=== PATIENT | female | born 1935 | race Caucasian/White ===

== ENCOUNTER 2019-04-05 11:23 | Outpatient (CLI) | payer MEDICARE, BC ==
--- NOTE | 2019-04-05 14:47 | XRAY Report ---
Reason: LEG WEAKNESS,LEFT,SCIATICA,ACUTE Procedure Date: 04/05/2019 Accession Number: [id number] / [id number] Procedure: XR - Lumbar Spine Complete CPT Code: FULL RESULT: EXAM: LUMBOSACRAL SPINE RADIOGRAPHY EXAM DATE: 04/05/2019 11:54 AM. CLINICAL HISTORY: Leg weakness, left, sciatica, acute. COMPARISONS: None. TECHNIQUE: 3 views. FINDINGS: Alignment: Normal. No spondylolisthesis or scoliosis. Bones: Five xqm-edq-[id number] lumbar vertebral bodies are present. No fractures or bone lesions. Disks: There is multilevel loss of disk space height throughout the lumbar spine with endplate sclerosis, most pronounced at L2-L3 and L4-L5. Facets: There is mild facet arthropathy at L1 through L3 with moderate facet arthropathy at L4 and moderate to severe facet arthropathy at L5 where there is suggestion of a pars defect, not well seen due to the degenerative changes. Sacroiliac Joints: Unremarkable. Soft Tissues: Normal. The visualized bowel gas pattern is normal. IMPRESSION: Extensive lumbar spine degenerative changes. Given suspected pars defect and symptoms, consideration for noncontrast MRI of the lumbar spine is suggested. RADIA
== END 2019-04-05 11:24 | disposition home or self-care (01) ==
LOC: DI 11:23
PROVIDERS: ATTEND Physician Assistant Medical
DX: M51.36 Other intervertebral disc degeneration, lumbar region (principal); M47.816 Spondylosis without myelopathy or radiculopathy, lumbar region
CPT/HCPCS: 72110

== ENCOUNTER 2019-04-14 06:59 | Outpatient (CLI) | payer MEDICARE, BC ==
--- NOTE | 2019-04-14 19:07 | MRI Report ---
Reason: SPONDYLOSIS W/O MYELOPATHY OR RADICULOPATHY, LUMBA Procedure Date: 04/14/2019 Accession Number: [id number] / [id number] Procedure: MRI - Lumbar Spine W/O CPT Code: FULL RESULT: EXAM: MRI LUMBAR SPINE WITHOUT CONTRAST EXAM DATE: 04/14/2019 07:50 AM. CLINICAL HISTORY: Spondylosis with myelopathy or radiculopathy, lumbar. COMPARISON: LUMBAR SPINE COMPLETE 04/05/2019 11:29 AM. TECHNIQUE: Multiplanar, multisequence T1-weighted and fluid-sensitive sequences of the lumbar spine from T12 to S1 without contrast. Other: None. FINDINGS: Spinal Canal: The conus terminates at L2. The conus medullaris and cauda equina are unremarkable. Alignment: No scoliosis or spondylolisthesis. Bone Marrow: Five kxx-tfv-szcwrpa lumbar vertebral bodies are assumed. Modic type II degenerative marrow signal L1 to L5. T12 vertebral body 2.5 cm non-expansile hemangioma. Disk Levels/Facets: T11-T12: Severe disk degeneration. Posterior 2 mm disk protrusion. Moderate right foraminal stenosis from foraminal 2 mm disk protrusion and facet degenerative hypertrophy. Mild left foraminal stenosis. Mild central spinal canal stenosis. T12-L1: Unremarkable. L1-L2: Severe disk degeneration. Moderate bilateral foraminal stenosis from disk degeneration and foraminal disk protrusion. Posterior 3 mm disk protrusion. Mild central spinal canal stenosis. L2-L3: Severe disk degeneration. Diffuse disk bulge. Mild left foraminal stenosis. Moderate right foraminal stenosis from facet hypertrophy and disk bulge. Mild central spinal canal stenosis. L3-L4: Severe disk degeneration. Moderately severe spinal canal stenosis. Ligamentum flavum thickening. Severe right and moderate left facet hypertrophic arthropathy. Moderate right foraminal stenosis from facet hypertrophy. Mild left foraminal stenosis from facet hypertrophy. L4-L5: Severe disk degeneration. Mild spinal canal stenosis. Moderate facet joint arthrosis. Posterior element hypertrophy. Mild bilateral foraminal stenosis. L5-S1: Severe disk degeneration. Moderate facet joint arthrosis. Moderate right and moderate to severe left foraminal stenosis from disk degeneration and endplate spurring. Musculature: Normal. No edema or fatty atrophy. Other: The partially visualized retroperitoneum is unremarkable. IMPRESSION: 1. Moderately severe spinal canal stenosis, moderate right foraminal stenosis and mild left foraminal stenosis L3-L4. 2. Moderate right and moderate to severe left foraminal stenosis L5-S1. 3. Mild central spinal canal stenosis and moderate right foraminal stenosis L2-L3. 4. Mild central spinal canal stenosis and moderate bilateral foraminal stenosis L1-L2. 5. Mild central spinal canal stenosis, moderate right foraminal stenosis and mild left foraminal stenosis T11-T12. Comment: The following findings are so common in adults without low back pain that while we report their presence, they must be interpreted with caution and in the context of the clinical situation. (Reference Damienk et al, Spine 2001) Prevalence of findings in patients without low back pain: Disk degeneration (any evidence): 92% Disk desiccation/T2 signal loss: 83% Disk height loss: 56% Disk bulge: 64% Disk protrusion: 32% Annular tear/high intensity zone: 38% RADIA
== END 2019-04-14 07:00 | disposition home or self-care (01) ==
LOC: DI 06:59
PROVIDERS: ATTEND Physician Assistant Medical
DX: M51.26 Other intervertebral disc displacement, lumbar region (principal); M51.24 Other intervertebral disc displacement, thoracic region; M48.061 Spinal stenosis, lumbar region without neurogenic claudication; M47.816 Spondylosis without myelopathy or radiculopathy, lumbar region; M51.37 Other intervertebral disc degeneration, lumbosacral region; M48.07 Spinal stenosis, lumbosacral region; M51.36 Other intervertebral disc degeneration, lumbar region; M47.817 Spondylosis without myelopathy or radiculopathy, lumbosacral region
CPT/HCPCS: 72148

== ENCOUNTER 2019-06-08 15:54 | Outpatient (CLI) | payer MEDICARE, BC ==
[2019-06-08] MEDS ORDERED: GADOBUTROL 7.5 MMOL/7.5 ML VIAL ONE (17:19)
[2019-06-08] MEDS ORDERED: GADOBUTROL 7.5 MMOL/7.5 ML VIAL IV ONE (17:20)
--- NOTE | 2019-06-09 14:42 | MRI Report ---
Reason: DEGENERATIVE JOINT DISEASE, LUMBOSACRAL SPINE, SEV Procedure Date: 06/08/2019 Accession Number: [id number] / [id number] Procedure: MRI - Hip LT W/WO CPT Code: FULL RESULT: EXAM: LEFT HIP MRI WITHOUT AND WITH CONTRAST EXAM DATE: 06/08/2019 05:34 PM. CLINICAL HISTORY: Degenerative joint disease, lumbosacral spine, severe. Left hip and left leg pain. COMPARISON: XR HIP LEFT 06/02/2019 10:13 AM. TECHNIQUE: Multiplanar, multisequence T1-weighted and fluid-sensitive, small arygp-fb-ftnj sequences of the hip and large rxnwg-bq-qyng sequences of the pelvis before and after administration of intravenous contrast. IV contrast: 7 cc Gadavist. Other: None. FINDINGS: Bones: Left femoral head and left femoral neck marrow edema. 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 Anterior superior left acetabulum subcortical degenerative cysts. Left Hip: No acetabular retroversion. Femoral head/neck offset is within normal limits. Moderate left hip joint fluid. Severe chondromalacia. Complete loss of the superior left hip joint space. The labrum is intact. The ligamentum teres is intact. Enhancing edema superior left femoral head with nonenhancing 1.0 x 1.8 cm superior left femoral head defect (image 88 series 1101). Cortical irregularity and subcortical anterior left femoral head enhancement 1.8 cm (image 80 series 1101). Other Joints: Sacroiliac joints are within normal limits. Unremarkable right hip. Severe disk degeneration L4-L5 and L5-S1 interspaces. Musculature: No edema or fatty atrophy. The gluteus medius and minimus tendons are normal. The visualized hamstring tendons are normal. The ischiofemoral space is normal. Pelvic Cavity: The visualized viscera are unremarkable. No lymphadenopathy. No free fluid in the pelvis. Other: The visualized sciatic nerves are unremarkable. No bursitis. The subcutaneous tissues are unremarkable. No abscess or cellulitis. IMPRESSION: 1. Moderate left hip joint fluid and enhancing synovium. Recommend fluid aspiration if there is clinical concern for septic joint or inflammatory arthritis. 2. 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 Left femoral head marrow edema. Cannot exclude femoral head osteomyelitis and left hip septic joint. RADIA
== END 2019-06-08 15:55 | disposition home or self-care (01) ==
LOC: DI 15:54
PROVIDERS: ATTEND Internal Medicine
DX: M16.12 Unilateral primary osteoarthritis, left hip (principal)
CPT/HCPCS: 73723; A9585

== ENCOUNTER 2019-09-02 07:57 | Inpatient (IN) | payer MEDICARE, BC ==
[2019-09-02] MEDS ORDERED: SODIUM CHLORIDE 0.9% 1,000 ML IV ONE (08:36)
--- NOTE | 2019-09-02 08:39 | ED Physician Documentation ---
PD HPI NVD - Stated complaint Stated Complaint: N/V WEAKNESS/POST OP COMPLICATIONS - Chief complaint Chief Complaint: Abd Pain - History obtained from History obtained from: Patient, Family - History of Present Illness Timing - onset: How many days ago (4) Timing - duration: Days (4) Timing - details: Gradual onset, Still present Associated symptoms: Loss of appetite Contributing factors: Other (recent hip surgery) Worsened by: Eating Similar symptoms before: No diagnosis Recently seen: Surgery - Additonal information Additional information: 83-year-old female has had a minimally invasive left hip replacement done 8 days ago. She had some transient nausea in the recovery room and she went home was well for several days and beginning 3 days ago she began to get nausea again and this is progressed she is developed some weakness and she had a syncopal episode this morning in route to the bathroom. Review of Systems Constitutional: reports: Fatigue. denies: Fever, Chills Eyes: denies: Decreased vision Ears: denies: Ear pain Nose: denies: Rhinorrhea / runny nose, Congestion Throat: denies: Sore throat Cardiac: denies: Chest pain / pressure, Palpitations Respiratory: denies: Dyspnea, Cough GI: reports: Nausea, Vomiting. denies: Abdominal Pain : denies: Dysuria, Frequency Skin: denies: Rash Musculoskeletal: reports: Extremity pain. denies: Neck pain, Back pain Neurologic: reports: Generalized weakness. 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 - Present Medications Home Medications: Ambulatory Orders Medication Instructions Recorded Confirmed Acetaminophen [Tylenol Extra 500 mg PO 09/02/19 Strength] Aspirin 81 mg PO DAILY 09/02/19 09/02/19 Atenolol 25 mg PO BID 09/02/19 09/02/19 Calcium Carbonate/Vitamin D3 1 each PO DAILY 09/02/19 09/02/19 [Caltrate 600 Plus D3 Tablet] Meloxicam 15 mg PO DAILY 09/02/19 09/02/19 Multivitamin/Iron/Folic Acid 1 each PO DAILY 09/02/19 09/02/19 [Centrum Adults Tablet] Ondansetron HCl [Zofran] 4 mg PO 09/02/19 Polyethylene Glycol 1450 10,000 gm MC 09/02/19 Red Yeast Rice 600 mg PO DAILY 09/02/19 09/02/19 Senna [Senokot] 8.6 mg PO DAILY 09/02/19 09/02/19 Sennosides/Docusate Sodium [Colace 1 each PO 09/02/19 2-in-1 Tablet] amLODIPine [Norvasc] 5 mg PO DAILY 09/02/19 09/02/19 - Allergies Allergies/Adverse Reactions: Allergies Allergy/AdvReac Type Severity Reaction Status Date / Time diphenhydramine AdvReac Nausea Verified 09/02/19 08:11 - Social History Does the pt smoke?: No Smoking Status: Never smoker Does the pt drink ETOH?: No Does the pt have substance abuse?: No PD ED PE NORMAL - Vitals Vital signs reviewed: Yes (wide pulse pressure) - General General: Alert and oriented X 3, Well developed/nourished, Other (affect of concern) - HEENT HEENT: Atraumatic, PERRL, EOMI - Neck Neck: Supple, no meningeal sign - Cardiac Cardiac: RRR, No murmur - Respiratory Respiratory: No respiratory distress, Clear bilaterally - Abdomen Abdomen: Normal bowel sounds, Soft, Non distended, No organomegaly, Other (mild epigastric tenderness) - Back Back: No CVA TTP, No spinal TTP - Derm Derm: Normal color, Warm and dry, No rash - Extremities Extremities: No deformity, No edema - Neuro Neuro: Alert and oriented X 3, 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, No motor deficit, No sensory deficit, Normal speech Eye Opening: Spontaneous Motor: Obeys Commands Verbal: Oriented GCS Score: 15 - Psych Psych: Normal mood, Normal affect Results - Vitals Vitals: Vital Signs - 24 hr 09/02/19 09/02/19 09/02/19 08:09 10:14 11:10 Temperature 36.9 C 37.2 C Heart Rate 84 86 85 Respiratory 18 17 16 Rate Blood Pressure 108/37 L 102/45 L 97/38 L O2 Saturation 95 97 09/02/19 09/02/19 11:20 11:30 Temperature 37.2 C 37.4 C Heart Rate 84 81 Respiratory 14 13 Rate Blood Pressure 103/44 L 102/47 L O2 Saturation Oxygen O2 Source Room air - Labs Labs: Laboratory Tests 09/02/19 09/02/19 09/02/19 08:36 08:50 08:50 WBC 18.1 H RBC 1.54 L Hgb 4.9 L* Hct 15.7 L* MCV 101.9 H MCH 31.8 H MCHC 31.2 L RDW 13.9 Plt Count 337 MPV 9.0 Neut # (Auto) 13.7 H Lymph # (Auto) 1.8 [place] # (Auto) 1.3 H Eos # (Auto) 0.1 Baso # (Auto) 0.1 Absolute Nucleated RBC 0.06 Nucleated RBC % 0.3 Sodium 135 Potassium 4.5 Chloride 99 L Carbon Dioxide 29 Anion Gap 7.0 BUN 51 H Creatinine 1.1 H Estimated GFR (MDRD) 47 L Glucose 131 H Lactic Acid 1.3 Calcium 9.0 Total Bilirubin 0.6 AST 29 ALT 21 Alkaline Phosphatase 29 L Total Protein 5.0 L Albumin 2.5 L Globulin 2.5 Albumin/Globulin Ratio 1.0 Lipase 62 H Blood Type Blood Type Recheck Antibody Screen Crossmatch IS Only 09/02/19 09/02/19 09:24 10:35 WBC RBC Hgb Hct MCV MCH MCHC RDW Plt Count MPV Neut # (Auto) Lymph # (Auto) [place] # (Auto) Eos # (Auto) Baso # (Auto) Absolute Nucleated RBC Nucleated RBC % Sodium Potassium Chloride Carbon Dioxide Anion Gap BUN Creatinine Estimated GFR (MDRD) Glucose Lactic Acid Calcium Total Bilirubin AST ALT Alkaline Phosphatase Total Protein Albumin Globulin Albumin/Globulin Ratio Lipase Blood Type A POSITIVE Blood Type Recheck A POSITIVE Antibody Screen NEGATIVE Crossmatch IS Only See Detail - Rads (name of study) hip CT Radiology: Prelim report reviewed (In: 1. No hematoma postoperative left hip subcutaneous seroma. Left hip arthroplasty with greater trochanter fragment not included in the lateral plating), EMP read indepedently, See rad report chest Radiology: Prelim report reviewed (Impression: 1. Findings suggestive of mild CHF/fluid overload. Elevation of the right hemidiaphragm with mild right basila r atelectasis. Nodular opacity overlying the right upper lung may represent pulmonary nodule or sclerotic osseous density. If there are no prior studies available for comparison CT chest is recommended for further evaluation.), EMP read indepedently, See rad report Procedures - IVC sono (time) 0830 Bedside IVC sono: IVC measures (cm) (0.87), Dehydration (est 2 liter deficit) PD MEDICAL DECISION MAKING - ED course Complexity details: reviewed results, re-evaluated patient, considered differential, d/w patient, d/w family ED course: 83-year-old female with a recent minimally invasive left hip surgery presents today with marked anemia and GI bleeding. Her history is consistent with the GI bleeding being the source of her reduced blood counts. She indicates that on initial return to home she was progressing been able to get out of bed and back and forth to the bathroom and this changed 2 days ago. She noted at that time dark tarry stool as well. Her stool today is guaiac positive and black. She is administered intravenous Protonix a second IV line is placed and blood is ordered. Hospitalist is consulted in the case for admission. We do not have ortho here and her left hip is evaluated for bleeding by CT scan to ensure the patient is appropriate for our facility. No hematoma on CT. Departure - Departure Disposition: [facility] DC/Xfer Clinical Impression: GI bleeding Qualifiers: GI bleed type/associated pathology: melena Qualified Code(s): K92.1 - Melena Anemia Qualifiers: Anemia type: other cause Other causes of anemia: acute posthemorrhagic Qualified Code(s): D62 - Acute posthemorrhagic anemia
[2019-09-02 09:01] LABS: BASOPHILS # (AUTO) 0.1 10^3/uL (0.0-0.1); BASOPHILS % (AUTO) 0.4 %; EOSINOPHILS # (AUTO) 0.1 10^3/uL (0.0-0.7); EOSINOPHILS % (AUTO) 0.8 %; LYMPHOCYTES # (AUTO) 1.8 10^3/uL (1.5-3.5); LYMPHOCYTES % (AUTO) 10.1 %; MEAN CORPUSCULAR HEMOGLOBIN 31.8 pg (27.0-31.0); MEAN CORPUSCULAR HGB CONC 31.2 g/dL (32.0-36.0); MEAN CORPUSCULAR VOLUME 101.9 fL (81.0-99.0); MONOCYTES # (AUTO) 1.3 10^3/uL (0.0-1.0); MONOCYTES % (AUTO) 7.1 %; NEUTROPHILS # (AUTO) 13.7 10^3/uL (1.5-6.6); NEUTROPHILS % (AUTO) 75.8 %; PLT - PLATELET COUNT 337 10^3/uL (130-450); RED BLOOD COUNT 1.54 10^6/uL (4.20-5.40); RED CELL DISTRIBUTION WIDTH 13.9 % (12.0-15.0); WHITE BLOOD COUNT 18.1 x10^3/uL (4.8-10.8)
[2019-09-02] MEDS ORDERED: ACETAMINOPHEN 325 MG TABLET PO STA (09:06)
[2019-09-02 09:08] LABS: HGB - HEMOGLOBIN 4.9 g/dL (12.0-16.0)
[2019-09-02 09:13] LABS: ALBUMIN 2.5 g/dL (3.2-5.5); BILIRUBIN,TOTAL 0.6 mg/dL (0.2-1.0); CREATININE 1.1 mg/dL (0.4-1.0)
[2019-09-02] MEDS ORDERED: PANTOPRAZOLE 40 MG VIAL IVP STA (09:21)
--- NOTE | 2019-09-02 09:36 | XRAY Report ---
Reason: chest pain Procedure Date: 09/02/2019 Accession Number: [id number] / [id number] Procedure: XR - Chest 1 View X-Ray CPT Code: 27928 Final Report FULL RESULT: EXAM: CHEST RADIOGRAPHY EXAM DATE: 09/02/2019 09:10 AM. CLINICAL HISTORY: Chest pain. COMPARISON: None. TECHNIQUE: 1 view. FINDINGS: Lungs/Pleura: There is mild interstitial prominence. There is elevation of the right hemidiaphragm with streaky right basilar opacities, most likely atelectasis. No pleural effusion or pneumothorax demonstrated. There is a 10 mm nodular opacity overlying the right upper lung, also overlying the right anterior second rib. This could represents pulmonary nodule or sclerotic osseous density. Mediastinum: Cardiac silhouette is borderline enlarged. Mediastinal contour is within normal limits. Pulmonary vasculature is mildly engorged. Other: There is mild gaseous distention of the colon. Colonic interposition is demonstrated in the right upper abdomen. Old fractures of the right anterolateral third and fourth and right lateral seventh ribs demonstrated. IMPRESSION: 1. Findings suggesting mild CHF/fluid overload. 2. Elevation of the right hemidiaphragm with mild right basilar atelectasis. 3. Nodular opacity overlying the right upper lung may represent pulmonary nodule or sclerotic osseous density. If there are no prior studies available for comparison, chest CT is recommended for further evaluation. RADIA
[2019-09-02] MEDS ORDERED: ACETAMINOPHEN 1,000 MG/100 ML 100 ML IV STA (09:58)
--- NOTE | 2019-09-02 11:52 | CT Report ---
Reason: RECENT HIP SURGERY EVAL FOR BLOOD LOSS Procedure Date: 09/02/2019 Accession Number: [id number] / [id number] Procedure: CT - LOWER EXTREMITY WO - LT CPT Code: Final Report FULL RESULT: EXAM: CT PELVIS WITHOUT CONTRAST. EXAM DATE: 09/02/2019 10:14 AM. CLINICAL HISTORY: Recent hip surgery. Known GI bleed. Drop in hematocrit. Clinical concern for blood loss. COMPARISON: MRI hip 06/08/2019. TECHNIQUE: Thin-section axial images were acquired of the pelvis without contrast. Post-processing: Coronal and sagittal reformats. Other: None. In accordance with CT protocol optimization, one or more of the following dose reduction techniques were utilized for this exam: automated exposure control, adjustment of mA and/or KV based on patient size, or use of iterative reconstructive technique. FINDINGS: Bones: Degenerative changes in the lower lumbar spine. A left hip arthroplasty has a non-fixated acetabular cup and a noncemented femoral stem. Acetabular cup is proud to the lateral margin of the bone by 13 mm. A cerclage wire and lateral plates surround the intertrochanteric femur. A displaced portion of the superior greater trochanter is proximally positioned by 7 mm. Joints: The joint spaces are preserved. No calcified loose bodies. No large effusion. Musculature: Normal. No fatty atrophy. Other: The patient has had a hysterectomy. The other visualized pelvic organs are unremarkable. Mild lateral subcutaneous edema is adjacent to the left hip and in the left thigh. Adjacent to the surgical skin tract, there is an ill-defined collection within the subcutaneous tissues that measures 1.8 x 5.0 x 10.0 cm. The Hounsfield units are consistent with simple fluid. This is most likely an ill-defined postoperative seroma. No definite hematomas. IMPRESSION: 1. No hematoma. 2. Postoperative left hip subcutaneous seroma. 3. Left hip arthroplasty with greater trochanter fragment not included in the lateral plating. RADIA
[2019-09-02] MEDS ORDERED: ONDANSETRON ODT 4 MG TABLET TL PRN (12:49)
[2019-09-02] MEDS ORDERED: ONDANSETRON 4 MG/2 ML VIAL IVP PRN (12:49)
[2019-09-02] MEDS ORDERED: oxyCODONE 5 MG TABLET PO PRN (12:49)
[2019-09-02] MEDS ORDERED: ACETAMINOPHEN 325 MG TABLET PO PRN (12:49)
--- NOTE | 2019-09-02 15:27 | HISTORY & PHYSICAL EXAMINATION ---
Chief Complaint - Chief Complaint Chief Complaint: Syncope History of Present Illness - Admitted From Admitted From:: Home - History Obtained From History obtained from: Patient and chart - History of Present Illness HPI Comment/Other: Ms. Mcclelland is an 83 y.o. female w/ a hx of HTN, HLD and L hip replacement s/p 8 days ago who presents today for a syncopal episode. She was in route to the restroom, using a FWW w/ her daughter by her side when suddenly she fainted and her daughter was able to prevent her from falling. She mentions that she has been experiencing progressively worsening nausea as well as having black tarry stools since her surgery 8 days ago. Of note, she has been taking ASA and Meloxicam prophylactically since her surgery. Pertinent labs include a WBC of 18, a Hct of 15.7 and a hgb of 4.9. She was admitted for a GIB. She has no history of ulcer disease nor does she smoke or drink. History - Past Medical History Cardiovascular: reports: Hypertension, High cholesterol Respiratory: reports: None Neuro: reports: Headaches, Migraines, Fainting Endocrine/Autoimmune: reports: None CHIEF MINISTER: reports: Other () : reports: None HEENT: reports: None Psych: reports: None Musculoskeletal: reports: Chronic back pain Derm: reports: None MRSA Hx?: No - Past Surgical History General: reports: Appendectomy, Colonoscopy Ortho: reports: Hip replacement /CHIEF MINISTER: reports: Hysterectomy, Oophrectomy - Family & Social History Family History: Mother: , Alzheimer's Disease, CAD, Father: Living arrangement: At home Living Situation: Alone Social History Notes: 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 She knows that her health is likely to start declining in her near future and didn't want to put any stress on her children, so she decided that she would make it easier on them by moving close to her daughter. Her other two children live out of state. She never smoked and rarely drinks, maybe twice a year. - Substance History Use: Uses substance without health or social issues: NONE Abuse: Recurrent use of substance despite neg consequences: NONE Dependence: Experiences withdrawal or developed tolerances: NONE - POLST Patient has POLST: Yes POLST Status: DNR Meds/Allgy - Home Medications Home Medications: Ambulatory Orders Medication Instructions Recorded Confirmed Acetaminophen [Tylenol Extra 500 mg PO 09/02/19 Strength] Aspirin 81 mg PO DAILY 09/02/19 09/02/19 Atenolol 25 mg PO BID 09/02/19 09/02/19 Calcium Carbonate/Vitamin D3 1 each PO DAILY 09/02/19 09/02/19 [Caltrate 600 Plus D3 Tablet] Meloxicam 15 mg PO DAILY 09/02/19 09/02/19 Multivitamin/Iron/Folic Acid 1 each PO DAILY 09/02/19 09/02/19 [Centrum Adults Tablet] Ondansetron HCl [Zofran] 4 mg PO 09/02/19 Polyethylene Glycol 1450 10,000 gm MC 09/02/19 Red Yeast Rice 600 mg PO DAILY 09/02/19 09/02/19 Senna [Senokot] 8.6 mg PO DAILY 09/02/19 09/02/19 Sennosides/Docusate Sodium [Colace 1 each PO 09/02/19 2-in-1 Tablet] amLODIPine [Norvasc] 5 mg PO DAILY 09/02/19 09/02/19 - Allergies Allergies/Adverse Reactions: Allergies Allergy/AdvReac Type Severity Reaction Status Date / Time diphenhydramine AdvReac Nausea Verified 09/02/19 08:11 Review of Systems - Constitutional Constitutional: reports: Poor appetite. denies: Fever, Chills, Malaise, Diaphoresis, Night sweats, Weight loss - Eyes Eyes: denies: Pain, Irritation, Blurred vision, Spots in vision, Field loss - Ears, Nose & Throat Ears, Nose & Throat: denies: Ear pain, Hearing loss, Tinnitus, Vertigo, Nasal pain, Nasal discharge, Nosebleeds, Bleeding gums - Cardiovascular Cariovascular: reports: Syncope. denies: Irregular heart rate, Palpitations, Chest pain, Edema, Exertional dyspnea, Decr. exercise tolerance - Respiratory Respiratory: reports: Cough (Since surgery; non-productive). denies: Sputum production, Wheezing, Snoring, Hemoptysis, SOB at rest, SOB with exertion, Pleuritic pain - Gastrointestinal Gastrointestinal: reports: Rectal bleeding, Black stools, Nausea, Poor appetite. denies: Abdominal pain, Abdominal distention, Constipation, Diarrhea, Vomiting, [place] blood emesis, Coffee grounds emesis - Genitourinary Genitourinary: denies: Dysuria, Frequency, Urgency, Hematuria, Incontinence, Flank pain - Musculoskeletal Musculoskeletal: denies: Muscle pain - Integumentary Integumentary: denies: Rash, Pruritis, Lesions, Dryness - Neurological Neurological: reports: General weakness, Dizziness. denies: Focal weakness, Headache - Psychiatric Psychiatric: denies: Depression, Anxiety, Suicidal - Endocrine Endocrine: denies: Polyuria, Polydypsia, Polyphagia - Hematologic/Lymphatic Hematologic/Lymphatic: denies: Anemia, Bruising, Petechiae, Bleeding tendencies Prior Level of Functionality: Ms. Mcclelland has been less ambulatory over the past 5 months or so d/t excruciating hip pain, which is what led her to pursue an elective hip surgery. Prior to to this, she was highly functional and independent. She lives at home on her own. Pays her own bills and drives. Exam - Vital Signs Reviewed Vital Signs: Yes Vital Signs: Vital Signs x48h Temp Pulse Pulse Resp BP BP Pulse Ox 09/02/19 14:30 36.8 C 77 16 105/43 L 93 09/02/19 13:00 37.4 C 74 16 101/48 L 09/02/19 12:50 36.8 C 73 13 111/48 L 09/02/19 12:38 99.2 C H 77 19 105/46 L 09/02/19 12:20 37.3 C 75 16 104/47 L 09/02/19 12:00 77 15 103/49 L 97 09/02/19 11:30 37.4 C 81 13 102/47 L 09/02/19 11:20 37.2 C 84 14 103/44 L 09/02/19 11:10 37.2 C 85 16 97/38 L 09/02/19 10:14 86 17 102/45 L 97 09/02/19 08:09 36.9 C 84 18 108/37 L 95 - Physical Exam General Appearance: positive: Alert, Other (thin, pale elderly white female with her daughter at the bedside) Eyes Bilateral: positive: PERRL, EOMI ENT: positive: Pharynx nml Neck: positive: No JVD. negative: Stiff neck, Carotid bruit Respiratory: positive: Chest non-tender, No respiratory distress. negative: Wheezes, Rales, Rhonchi Cardiovascular: positive: Regular rate & rhythm, Systolic murmur. negative: Gallop/S4, Friction rub Peripheral Pulses: positive: 1+ Abdomen: positive: Non-tender, No organomegaly, No distention, Other (hypoactive bowel tones) Skin: positive: Dry, Pallor, Other (hands and feet were cold) Extremities: positive: Non-tender, Full ROM Neurologic/Psychiatric: positive: Oriented x3, CN's nml (2-12), Motor nml, Sensation nml Conclusion/Plan - Problem List (1) Acute blood loss anemia Conclusion/Plan: Due to presumed acute blood loss anemia from surgery and add to that a presumed NSAID gastritis. Her Hct/Hgb on admission was 15.7/4.9 on arrival. BPs were soft upon arrival but she is hemodynamically stable. She had been taking ASA and Meloxicam for prophylaxis X8 days s/p hip replacement. She will need to stop both of these indefinitely. -Transfuse 3 units PRBC -Check Hct/Hgb this evening (2) Upper GI bleed Conclusion/Plan: As noted above, likely cause of acute blood loss anemia (with her surgery). BUN/creatinine ratio is 46 and her stools have reportedly been black and tarry over the past 8 days. and guiac +, which alludes to an upper GIB. She has no hx of PUD, smoking or alcoholism. -Treatment for acute blood loss anemia as noted above -Start PPI -Consider starting Octreotide if pt continues to have s/s bleeding after PRBC transfusion -Will need to have endoscopy as an outpatient. If she continues to need transfusion, will need EGD before she leaves. (3) Mild congestive heart failure Conclusion/Plan: A CXR was done upon arrival which indicated mild CHF/fluid overload. However hr exam is negative. No JVD, no edema and no crackles. She has no history of CHF. This may be secondary to her acute blood loss anemia. She is hemodynamically stable and has no s/s volume overload but she does have an audible systolic murmur. -Monitor intake and output -Hold off on IVF for now -ECHO on Wednesday (4) MICHAEL (acute kidney injury) Conclusion/Plan: As a result of pre-renal azotemia. Creatinine 1.1 and BUN 51. Her lytes are WNL. Likely to improve w/ blood transfusion. -Check BMP in the am (5) Essential hypertension Conclusion/Plan: Takes amlodipine and Metoprolol at home. Currently holding d/t soft BPs -Continue to hold for now (6) S/P hip replacement Conclusion/Plan: This was an elective surgery done 8 days ago for chronic pain from a deteriorating hip joint. Case was discussed w/ the orthopedic surgeon on site w ho does not believe that any of her current medical issues warrant an urgent orthopedic consult. She is scheduled to f/u w/ her surgeon next week. A CT of her hip was done to r/o hematoma; did show a sub-q seroma. She has a dressing in place which will remain in place until she follows up with her surgeon. She has full ROM. Ortho does not feel she is bleeding into her surgery site as cause of anemia. -PT/OT while in house -F/u w/ orthopedic surgeon next week as noted Qualifiers: Laterality: left Qualified Code(s): Z96.642 - Presence of left artificial hip joint (7) Leukocytosis Conclusion/Plan: WBC 18.1 upon arrival. There is not a concern for infection at this time as this is likely an inflammatory response to her acute blood loss anemia. -CBC in the am Qualifiers: Leukocytosis type: leukemoid reaction Qualified Code(s): D72.823 - Leukemoid reaction (8) Solitary pulmonary nodule on lung CT Conclusion/Plan: CXR done upon admit found a nodular opacity underlying the right upper lung; po ssibly representing a pulmonary nodule or sclerotic osseous density. CT is recommended for further evaluation. She is not experiencing any respiratory distress and her SpO2 is in upper 90's on RA. She does report that she has been experiencing a dry cough over the course of the past month or so. -Chest CT as outpatient - Lab Results Fish Bones: 09/02/19 08:36 09/02/19 08:50 Core Measures - Anticipated LOS I expect patient to be DC'd or transferred within 96 hours.: Yes - DVT/VTE - Prophylaxis VTE/DVT Device ordered at admit?: Yes
[2019-09-02] MEDS: SODIUM CHLORIDE FLUSH 0.9% 10 ML SYRINGE IVP SCH (18:13)
[2019-09-02 18:53] LABS: BILIRUBIN,URINE NEGATIVE (NEGATIVE); GLUCOSE, URINE (UA) NEGATIVE (NEGATIVE); KETONES,URINE (UA) NEGATIVE (NEGATIVE); LEUKOCYTE ESTERASE, URINE MODERATE (NEGATIVE); NITRITE,URINE NEGATIVE (NEGATIVE); OCCULT BLOOD,URINE NEGATIVE (NEGATIVE); PROTEIN,URINE NEGATIVE (NEGATIVE); UROBILINOGEN,URINE 0.2 (NORMAL) E.U./dL (NORMAL)
[2019-09-02 19:03] LABS: BACTERIA,URINE None Seen /HPF (None Seen); CLARITY,URINE CLEAR (CLEAR); RBC,URINE None Seen /HPF (0-5); SQUAMOUS EPITHELIAL CELL,UR RARE Squamous (<= Few)
[2019-09-02 22:02] LABS: HGB - HEMOGLOBIN 6.5 g/dL (12.0-16.0)
[2019-09-03] MEDS: SODIUM CHLORIDE FLUSH 0.9% 10 ML SYRINGE IVP SCH ×3 (01:00→17:07)
[2019-09-03] MEDS ORDERED: SODIUM CHLORIDE 0.9% 500 ML ONE (01:39)
[2019-09-03] MEDS: PANTOPRAZOLE 40 MG VIAL IVP SCH (07:01)
[2019-09-03] MEDS: SODIUM CHLORIDE FLUSH 0.9% 10 ML SYRINGE IVP PRN (07:01)
[2019-09-03 07:19] LABS: BASOPHILS # (AUTO) 0.1 10^3/uL (0.0-0.1); BASOPHILS % (AUTO) 0.7 %; EOSINOPHILS # (AUTO) 0.9 10^3/uL (0.0-0.7); EOSINOPHILS % (AUTO) 5.6 %; HGB - HEMOGLOBIN 8.4 g/dL (12.0-16.0); LYMPHOCYTES # (AUTO) 2.4 10^3/uL (1.5-3.5); LYMPHOCYTES % (AUTO) 14.4 %; MEAN CORPUSCULAR HGB CONC 33.2 g/dL (32.0-36.0); MEAN CORPUSCULAR VOLUME 93.4 fL (81.0-99.0); MEAN PLATELET VOLUME 8.6 fL (7.9-10.8); MONOCYTES # (AUTO) 1.2 10^3/uL (0.0-1.0); MONOCYTES % (AUTO) 7.1 %; NEUTROPHILS # (AUTO) 10.6 10^3/uL (1.5-6.6); NEUTROPHILS % (AUTO) 63.7 %; PLT - PLATELET COUNT 302 10^3/uL (130-450); RED BLOOD COUNT 2.71 10^6/uL (4.20-5.40); RED CELL DISTRIBUTION WIDTH 17.8 % (12.0-15.0); WHITE BLOOD COUNT 16.7 x10^3/uL (4.8-10.8)
[2019-09-03 07:30] LABS: CALCIUM 8.2 mg/dL (8.5-10.3); CREATININE 1.1 mg/dL (0.4-1.0)
[2019-09-03 08:16] LABS: PLATELET ESTIMATE, MANUAL NORMAL (130-450,000) (NORMAL)
[2019-09-03 08:19] LABS: PLATELET MORPHOLOGY NORMAL APP (NORMAL)
--- NOTE | 2019-09-03 09:15 | PROVIDER PROGRESS NOTE ---
Subjective - Prog Note Date Prog Note Date: 09/03/19 - Subjective Pt reports feeling: Improved Subjective: Ms. Mcclelland is feeling much more energized this morning. She feels like she could get up and walk around, but wants to take it easy. Her appetite has improved as well. She was afraid to eat last night because she had thought that what she ate might come back up, so she just nibbled on some things. This morning she was able to eat her whole breakfast and is not feeling any nausea or ABD pain or cramping. She was able to get up with assistance and walk to the restroom and did not feel lightheaded or dizzy while ambulating. She has not had a bowel movement yet but will let staff know when/if she does. Current Medications - Current Medications Current Medications: Active Medications Acetaminophen (Tylenol) 650 mg PO Q4HR PRN PRN Reason: Pain 1 to 4 Ondansetron HCl (Zofran Inj) 4 mg IVP Q6HR PRN PRN Reason: Nausea / Vomiting Ondansetron HCl (Zofran Odt) 4 mg TL Q6HR PRN PRN Reason: Nausea / Vomiting Oxycodone HCl (Roxicodone) 5 mg PO Q4HR PRN PRN Reason: Pain 5 to 7 Pantoprazole Sodium (Protonix) 40 mg IVP QDAC [facility] Last Admin: 09/03/19 07:01 Dose: 40 mg Sodium Chloride (Normal Saline Flush 0.9%) 10 ml IVP PRN PRN PRN Reason: NEEDED PER PROVIDER ORDERS Last Admin: 09/03/19 07:01 Dose: 20 ml Sodium Chloride (Normal Saline Flush 0.9%) 10 ml IVP 0100,0900,1700 [facility] Last Admin: 09/03/19 01:00 PST Dose: 20 ml Acetaminophen [Tylenol Extra Strength] 500 mg PO Q6H PRN 09/02/19 Aspirin 81 mg PO BID 09/02/19 Atenolol 25 mg PO BID 09/02/19 Calcium Carbonate/Vitamin D3 [Caltrate 600 Plus D3 Tablet] 1 each PO DAILY 09/02/19 Meloxicam 15 mg PO DAILY 09/02/19 Multivitamin/Iron/Folic Acid [Centrum Adults Tablet] 1 each PO DAILY 09/02/19 Ondansetron HCl [Zofran] 4 mg PO Q6H PRN 09/02/19 Polyethylene Glycol 1450 8.5 gm PO DAILY 09/02/19 Red Yeast Rice 600 mg PO DAILY 09/02/19 Senna [Senokot] 8.6 mg PO DAILY PRN 09/02/19 amLODIPine [Norvasc] 5 mg PO DAILY 09/02/19 Objective - Vital Signs/Intake & Output Vital Signs: Vital Signs x48h Temp Pulse Pulse Resp BP BP Pulse Ox 09/03/19 08:00 36.9 C 76 16 115/48 L 93 09/03/19 04:24 37.0 C 76 20 114/47 L 09/03/19 01:12 PST 37.2 C 79 16 116/48 L Intake & Output: Intake & Output 08/31/19 09/01/19 09/02/19 09/03/19 23:59 23:59 23:59 22:59 Intake Total 2225 1320 Output Total 525 1100 Balance 1700 220 - Objective General Appearance: positive: No acute distress, Alert. negative: Anxious, Lethargic Eyes Bilateral: positive: Normal inspection, No lid inflammation, Conjunctivae nml, No scleral icterus ENT: positive: ENT inspection nml, Pharynx nml, No signs of dehydration. negative: Purulent nasal drainage, Pharyngeal erythema, Oral lesions, Dry mucous membranes Neck: positive: Nml inspection, Thyroid nml, No JVD, Trachea midline. negative: Carotid bruit, Swelling/bruising, Tracheal deviation Respiratory: positive: Chest non-tender, No respiratory distress, Breath sounds nml. negative: Wheezes, Rales, Rhonchi Cardiovascular: positive: Regular rate & rhythm, No gallop, Systolic murmur. negative: Tachycardia, Bradycardia, PMI displaced laterally, JVD present, Decreased pulse(s) Abdomen: positive: Non-tender, Nml bowel sounds, No distention. negative: Tenderness, Guarding, Rebound, Abnml bowel sounds Rectal: negative: Tenderness, Hemorrhoid Back: positive: Nml inspection. negative: CVA tenderness (R), CVA tenderness (L) Skin: positive: Color nml, No rash, Warm, Dry. negative: Cyanosis, Diaphoresis, Pallor, Skin rash Extremities: positive: Non-tender, Full ROM, Nml appearance, No pedal edema. negative: Pedal edema, Calf tenderness, Joint swelling Neurologic/Psychiatric: positive: Oriented x3, CN's nml (2-12), Motor nml, Sensation nml, Mood/affect nml, Weakness. negative: Sensory loss, Facial droop, Slurred/abnml speech, Depressed mood/affect - Lab Results Fish Bones: 09/03/19 07:04 09/03/19 07:04 Other Labs: Lab Results x24hrs 09/03/19 09/03/19 09/02/19 Range/Units 07:04 07:04 21:55 WBC 16.7 H (4.8-10.8) x10^3/uL RBC 2.71 L (4.20-5.40) 10^6/uL Hgb 8.4 L 6.5 L* (12.0-16.0) g/dL Hct 25.3 L 19.5 L* (37.0-47.0) % MCV 93.4 (81.0-99.0) fL MCH 31.0 (27.0-31.0) pg MCHC 33.2 (32.0-36.0) g/dL RDW 17.8 H (12.0-15.0) % Plt Count 302 (130-450) 10^3/uL MPV 8.6 (7.9-10.8) fL Neut # (Auto) 10.6 H (1.5-6.6) 10^3/uL Lymph # (Auto) 2.4 (1.5-3.5) 10^3/uL [place] # (Auto) 1.2 H (0.0-1.0) 10^3/uL Eos # (Auto) 0.9 H (0.0-0.7) 10^3/uL Baso # (Auto) 0.1 (0.0-0.1) 10^3/uL Absolute Nucleated RBC 0.15 x10^3/uL Nucleated RBC % 0.9 /100WBC Manual Slide Review Indicated Platelet Estimate NORMAL (130-450,000) (NORMAL) Platelet Morphology NORMAL STACEY (NORMAL) RBC Morph Micro Appear 1+ POLYCHROMASIA (NORMAL) Sodium 138 (135-145) mmol/L Potassium 3.9 (3.5-5.0) mmol/L Chloride 105 (101-111) mmol/L Carbon Dioxide 26 (21-32) mmol/L Anion Gap 7.0 (6-13) BUN 36 H (6-20) mg/dL Creatinine 1.1 H (0.4-1.0) mg/dL Estimated GFR (MDRD) 47 L (>89) Glucose 102 H (70-100) mg/dL Calcium 8.2 L (8.5-10.3) mg/dL Urine Color Urine Clarity (CLEAR) Urine pH (5.0-7.5) PH Ur Specific [place] (1.002-1.030) Urine Protein (NEGATIVE) mg/dL Urine Glucose (UA) (NEGATIVE) mg/dL Urine Ketones (NEGATIVE) mg/dL Urine Occult Blood (NEGATIVE) Urine Nitrite (NEGATIVE) Urine Bilirubin (NEGATIVE) Urine Urobilinogen (NORMAL) E.U./dL Ur Leukocyte Esterase (NEGATIVE) Urine RBC (0-5) /HPF Urine WBC (0-5) /HPF Ur Squamous Epith Cells (<= Few) Urine Bacteria (None Seen) /HPF Ur Microscopic Review Urine Culture Comments Blood Type Blood Type Recheck Antibody Screen Crossmatch IS Only 09/02/19 09/02/19 09/02/19 Range/Units 18:30 10:35 09:24 WBC (4.8-10.8) x10^3/uL RBC (4.20-5.40) 10^6/uL Hgb (12.0-16.0) g/dL Hct (37.0-47.0) % MCV (81.0-99.0) fL MCH (27.0-31.0) pg MCHC (32.0-36.0) g/dL RDW (12.0-15.0) % Plt Count (130-450) 10^3/uL MPV (7.9-10.8) fL Neut # (Auto) (1.5-6.6) 10^3/uL Lymph # (Auto) (1.5-3.5) 10^3/uL [place] # (Auto) (0.0-1.0) 10^3/uL Eos # (Auto) (0.0-0.7) 10^3/uL Baso # (Auto) (0.0-0.1) 10^3/uL Absolute Nucleated RBC x10^3/uL Nucleated RBC % /100WBC Manual Slide Review Platelet Estimate (NORMAL) Platelet Morphology (NORMAL) RBC Morph Micro Appear (NORMAL) Sodium (135-145) mmol/L Potassium (3.5-5.0) mmol/L Chloride (101-111) mmol/L Carbon Dioxide (21-32) mmol/L Anion Gap (6-13) BUN (6-20) mg/dL Creatinine (0.4-1.0) mg/dL Estimated GFR (MDRD) (>89) Glucose (70-100) mg/dL Calcium (8.5-10.3) mg/dL Urine Color YELLOW Urine Clarity CLEAR (CLEAR) Urine pH 6.0 (5.0-7.5) PH Ur Specific [place] 1.010 (1.002-1.030) Urine Protein NEGATIVE (NEGATIVE) mg/dL Urine Glucose (UA) NEGATIVE (NEGATIVE) mg/dL Urine Ketones NEGATIVE (NEGATIVE) mg/dL Urine Occult Blood NEGATIVE (NEGATIVE) Urine Nitrite NEGATIVE (NEGATIVE) Urine Bilirubin NEGATIVE (NEGATIVE) Urine Urobilinogen 0.2 (NORMAL) (NORMAL) E.U./dL Ur Leukocyte Esterase MODERATE H (NEGATIVE) Urine RBC None Seen (0-5) /HPF Urine WBC >25 H (0-5) /HPF Ur Squamous Epith Cells RARE Squamous (<= Few) Urine Bacteria None Seen (None Seen) /HPF Ur Microscopic Review INDICATED Urine Culture Comments INDICATED Blood Type Cancelled Blood Type Recheck A POSITIVE Antibody Screen Cancelled Crossmatch IS Only See Detail 09/02/19 Range/Units 09:24 WBC (4.8-10.8) x10^3/uL RBC (4.20-5.40) 10^6/uL Hgb (12.0-16.0) g/dL Hct (37.0-47.0) % MCV (81.0-99.0) fL MCH (27.0-31.0) pg MCHC (32.0-36.0) g/dL RDW (12.0-15.0) % Plt Count (130-450) 10^3/uL MPV (7.9-10.8) fL Neut # (Auto) (1.5-6.6) 10^3/uL Lymph # (Auto) (1.5-3.5) 10^3/uL [place] # (Auto) (0.0-1.0) 10^3/uL Eos # (Auto) (0.0-0.7) 10^3/uL Baso # (Auto) (0.0-0.1) 10^3/uL Absolute Nucleated RBC x10^3/uL Nucleated RBC % /100WBC Manual Slide Review Platelet Estimate (NORMAL) Platelet Morphology (NORMAL) RBC Morph Micro Appear (NORMAL) Sodium (135-145) mmol/L Potassium (3.5-5.0) mmol/L Chloride (101-111) mmol/L Carbon Dioxide (21-32) mmol/L Anion Gap (6-13) BUN (6-20) mg/dL Creatinine (0.4-1.0) mg/dL Estimated GFR (MDRD) (>89) Glucose (70-100) mg/dL Calcium (8.5-10.3) mg/dL Urine Color Urine Clarity (CLEAR) Urine pH (5.0-7.5) PH Ur Specific [place] (1.002-1.030) Urine Protein (NEGATIVE) mg/dL Urine Glucose (UA) (NEGATIVE) mg/dL Urine Ketones (NEGATIVE) mg/dL Urine Occult Blood (NEGATIVE) Urine Nitrite (NEGATIVE) Urine Bilirubin (NEGATIVE) Urine Urobilinogen (NORMAL) E.U./dL Ur Leukocyte Esterase (NEGATIVE) Urine RBC (0-5) /HPF Urine WBC (0-5) /HPF Ur Squamous Epith Cells (<= Few) Urine Bacteria (None Seen) /HPF Ur Microscopic Review Urine Culture Comments Blood Type A POSITIVE Blood Type Recheck Antibody Screen NEGATIVE Crossmatch IS Only See Detail Assessment/Plan - Problem List (1) Acute blood loss anemia Impression: As a result of presumed blood loss for hip surgery 9 days ago in addition to a presumed gastritis from prophylatic NSAID use. Her Hct/Hgb on admission was 15.7/4.9. She was transfused 3 units of PRBCs yesterday and her Hct/Hgb is improved this am (25.3/8.4). She is hemodynamically stable at this point and has no s/s of active bleeding. She had been taking ASA and Meloxicam for prophylaxis X8 days s/p hip replacement. She will need to stop both of these ind efinitely. Will hold off on more transfusions for now and re-check a Hct/Hgb around 1400 today. -Hold off of additional PRBC transfusions for now -Await Hct/Hgb results at 1400 -Supplemental O2 as needed (2) Upper GI bleed Impression: As noted above, likely cause of acute blood loss anemia from her surgery + NSAID use. BUN/creatinine ratio was 46 and she had reportedly been having black and tarry stools after her surgery. Her guiac was also +. All of the mentioned above allude to an upper GIB. She has no hx of PUD, smoking or alcoholism. -s/p treatment for acute blood loss anemia as noted above -Continue PPI -Consider Octreotide if there is a drop in Hct/Hgb in this afternoon's labs -Will need to have endoscopy as an outpatient. If she needs additional transfusions based on this afternoon's labs, will need to have an EGD before she leaves. (3) Mild congestive heart failure Impression: A CXR was done upon arrival, which indicated mild CHF/fluid overload. However, her exams thus far have been negative. She continues to have no JVD, crackles, orthopnea or 3rd heart sound, or edema but she does have an audible systolic murmur. She has no history of CHF. Taking into account that a CXR cannot be used to diagnose CHF, but also considering a likely increase in cardiac stress secondary to her acute blood loss anemia over an 8 day period, she will have an ECHO done while in house. -Monitor intake and output -Hold off on IVF for now -ECHO tomorrow before D/C (4) MICHAEL (acute kidney injury) Impression: Secondary to pre-renal azotemia. Creatinine remains at 1.1. BUN down a bit from 51 to 36. Her lytes are WNL. We are likely to see a trending improvement in renal function after her PRBC transfusion. -Check BMP in the am (5) Essential hypertension Impression: Takes Amlodipine and Metoprolol at home. Currently holding d/t soft BPs. -Continue to hold for now (6) S/P hip replacement Impression: This was an elective surgery done 9 days ago for chronic pain from a deteri orating hip joint. Case was discussed with the orthopedic surgeon on site who does not feel that she is bleeding into her surgery site is cause for anemia, or that any of her current medical issues warrant an urgent orthopedic consult. A CT of her hip was done to r/o hematoma; did show a sub-q seroma. She has a dressing in place which will remain until she follows up with her surgeon. She has full ROM. She is scheduled to f/u w/ her surgeon next week. -PT/OT while in house -f/u w/ orthopedic surgeon this week as noted Qualifiers: Laterality: left Qualified Code(s): Z96.642 - Presence of left artificial hip joint (7) Leukocytosis Impression: WBC 18.1 upon arrival. Down to 16.7 today. There is not a concern for infection at this time, as this is likely an inflammatory response to her acute blood loss anemia. Blood cx are NTD. Her U/A showed moderate leukocyte esterase. Her urine WBC were > 25 and a C&S was indicated. Will hold off on ABX for now as she is medically improving. -Await final BC -Await final U/A C&S results -CBC in the am Qualifiers: Leukocytosis type: leukemoid reaction Qualified Code(s): D72.823 - Leukemoid reaction (8) Solitary pulmonary nodule on lung CT Impression: CXR done on admit found a nodular opacity underlying the right upper lung; possible representing a pulmonary nodule or sclerotic osseous density. CT is recommended for further evaluation. She is not experiencing any respiratory distress and her SpO2 is in the upper 90's on RA. She does report that she has been experiencing a dry cough over the course of the past month or so. -Chest CT as outpatient.
[2019-09-03 15:26] LABS: HGB - HEMOGLOBIN 8.4 g/dL (12.0-16.0)
[2019-09-04] MEDS: SODIUM CHLORIDE FLUSH 0.9% 10 ML SYRINGE IVP SCH (01:30)
[2019-09-04] MEDS: SODIUM CHLORIDE FLUSH 0.9% 10 ML SYRINGE IVP PRN (06:36)
[2019-09-04] MEDS: PANTOPRAZOLE 40 MG VIAL IVP SCH (06:36)
--- NOTE | 2019-09-04 07:09 | Discharge Plan ---
Discharge Plan Problem Reviewed?: Yes Disposition: Home, Self Care Condition: Stable Prescriptions: Ferrous Gluconate 240 mg PO DAILY #30 tablet Diet: Regular Activity Restrictions: Activity as Tolerated Shower Restrictions: No Driving Restrictions: No Health Concerns: You came to the emergency room because you had passed out as you were walking across her floor, using a walker to go to the bathroom. You had a hip replacement 10 days ago. And had been placed on aspirin twice a day and were also taking something called meloxicam. Both of those medications are known to cause gastritis or gastric ulcers. When you came in, you had described having black tarry stool since the postoperative setting. You been weak, lightheaded, without an appetite. In the emergency room you had a very low blood pressure, high pulse rate, and a hemoglobin of 4.9. Hemoglobin is a measure of red blood cells. A normal amount of hemoglobin is 12 g in a woman. Plan of Treatment: Treatment consisted of transfusing with 3 units of packed red cells. We did not give you your blood pressure medicine since her blood pressure is too low. You have not had any more black, tarry stool Care Goals: 1. Please see your primary care provider, Cayden Fritz, so that he can check your hemoglobin. 2. We are starting you on an iron tablet once a day. This will help you build up your hemoglobin. It is a temporary measure and you will not have to be on it permanently. Dr. Fritz will tell you when to stop it. 3. Please have Dr. Fritz refer you for an endoscopy. There are 3 groups on [facility] that do upper endoscopy. [facility] sees patients in [place]. [facility] general surgery sees patients here in [place]. And Dr. Nick Guillen, general surgery, also sees patients in [place]. 4. Please follow-up with your orthopedic surgeon and let him know about your upper GI bleed. 5.. Do not resume your blood pressure medicines until your blood pressure is consistently above 140/90. Take your blood pressure every day, but only ONCE a day. Do not take it more than that. Once is it above 140/90, resume one of your pills. Then resume the second one if you need to if the blood pressure doesn't come down to less than 140/[address] Fritz know what you are doing. Take these instructions in for him to read. Assessment: Patient expresses understanding and will follow thru. No Smoking: If you smoke, Please STOP! Call for help. Follow-up with: Cayden Fritz MD [Primary Care Provider] -
[2019-09-04 09:16] VITALS: BP 128/59
--- NOTE | 2019-09-04 19:19 | DISCHARGE SUMMARY ---
Discharge Summary Admit Date: 09/02/19 Discharge Date: 09/04/19 Discharging Provider: Gala Funk MD Primary Care Provider: Scott Fritz MD Code Status: Attempt Resuscitation Condition at Discharge: Stable Discharge Disposition: 01 Home, Self Care - DIAGNOSES Discharge Diagnoses with Status of Each Condition: 1. Anemia associated with acute blood loss 2. Upper GI bleed 3. Mild congestive heart failure on chest x-ray but not on physical exam 4. Acute kidney injury 5. Essential hypertension 6. Status post hemiarthroplasty, postoperative day #8 on admission 7. Leukocytosis 8. Solitary pulmonary nodule 9. E. coli UTI - HPI History of Present Illness: Ms. Mcclelland is an 83 y.o. female w/ a hx of HTN, HLD and L hip replacement s/p 8 days ago who presents today for a syncopal episode. She was in route to the restroom, using a FWW w/ her daughter by her side when suddenly she fainted and her daughter was able to prevent her from falling. She mentions that she has been experiencing progressively worsening nausea as well as having black tarry stools since her surgery 8 days ago. Of note, she has been taking ASA and Meloxicam prophylactically since her surgery. Pertinent labs include a WBC of 18, a Hct of 15.7 and a hgb of 4.9. She was admitted for a GIB. She has no history of ulcer disease nor does she smoke or drink. 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 Hemoglobin was 4.9. She received 3 units of packed cells and hemoglobin went to 8.4 and stayed stable over 12 to 18 hours. It is presumed that she is having a GI bleed secondary to the use of meloxicam and aspirin in the postoperative setting for her hip replacement. I have asked her to start an iron tablet a day. Never to take any more nonsteroidal therapies. And take Protonix every day until she sees a either gastroenterology or general surgery for an EGD. She had some mild hypotension during her stay. In the pre-admission status she is on atenolol, Norvasc. I have asked her to not take those medications until s he sees her primary care provider. She may not need them. On the day of discharge, she had already left the building when lab notified me that she had an E. coli UTI. I called and left a message on her answering machine and called in Bactrim double strength to her pharmacy. Acute kidney injury was present during her stay. Admission BUN was 51 and at discharge was 36. Creatinine was 1.1 and remained at 1.1. I would recommend she have a BMP checked in a week. And she avoid all nephrotoxic agents including nonsteroidals. She is to follwoup on the lung nodule seen on CT in the outpatient setting. I have asked her to see her provider in the next 1-2 weeks. Take iron as a supplement. At discharge temperature was 37 pulse was 86 blood pressure 129/58. Respirations 15 and 99% on room air. She is 5 foot tall and weighs 73.5 kg. Is a janel, slender, alert white female who looks younger than stated age. Lungs are clear to auscultation and percussion. She has a regular rate and rhythm. A soft, nontender, benign abdomen. Extremities without edema. Her hip fracture wound site was clean, closed, and healing well. Greater than 30 minutes was spent coordinating discharge. - ALLERGIES Allergies/Adverse Reactions: Allergies Allergy/AdvReac Type Severity Reaction Status Date / Time diphenhydramine AdvReac Nausea Verified 09/02/19 08:11 - MEDICATIONS Home Medications: Ambulatory Orders Medication Instructions Recorded Confirmed Acetaminophen [Tylenol Extra 500 mg PO Q6H PRN 09/02/19 09/03/19 Strength] Atenolol 25 mg PO BID 09/02/19 09/02/19 Calcium Carbonate/Vitamin D3 1 each PO DAILY 09/02/19 09/02/19 [Caltrate 600 Plus D3 Tablet] Multivitamin/Iron/Folic Acid 1 each PO DAILY 09/02/19 09/02/19 [Centrum Adults Tablet] Ondansetron HCl [Zofran] 4 mg PO Q6H PRN 09/02/19 09/03/19 Polyethylene Glycol 1450 8.5 gm PO DAILY 09/02/19 09/03/19 Red Yeast Rice 600 mg PO DAILY 09/02/19 09/02/19 Senna [Senokot] 8.6 mg PO DAILY PRN 09/02/19 09/02/19 Ferrous Gluconate 240 mg PO DAILY #30 tablet 09/04/19 Pantoprazole [Protonix] 40 mg PO DAILY #30 tablet 09/04/19 cephALEXin [Keflex] 250 mg PO Q8H #21 capsule 09/04/19 - LABS Result Diagrams: 09/03/19 15:20 09/03/19 07:04
== END 2019-09-04 10:00 | disposition home or self-care (01) | DRG 811 ==
LOC: ED 07:57 → MS2 12:49
PROVIDERS: ADMIT Specialist; ATTEND Specialist
PROC: 30233N1 Transfusion of Nonautologous Red Blood Cells into Peripheral Vein, Percutaneous Approach (ICD-10-PCS; principal; 2019-09-03)
DX: D62 Acute posthemorrhagic anemia (principal); K92.1 Melena; K29.71 Gastritis, unspecified, with bleeding; N17.9 Acute kidney failure, unspecified; E78.00 Pure hypercholesterolemia, unspecified; G43.909 Migraine, unspecified, not intractable, without status migrainosus; R55 Syncope and collapse; N39.0 Urinary tract infection, site not specified; M96.842 Postprocedural seroma of a musculoskeletal structure following a musculoskeletal system procedure; I11.0 Hypertensive heart disease with heart failure; I50.9 Heart failure, unspecified; G89.29 Other chronic pain; M54.9 Dorsalgia, unspecified; R91.1 Solitary pulmonary nodule; B96.20 Unspecified Escherichia coli [E. coli] as the cause of diseases classified elsewhere; E78.5 Hyperlipidemia, unspecified; R01.1 Cardiac murmur, unspecified; Z66 Do not resuscitate; T39.395A Adverse effect of other nonsteroidal anti-inflammatory drugs [NSAID], initial encounter; Z96.642 Presence of left artificial hip joint; Y92.009 Unspecified place in unspecified non-institutional (private) residence as the place of occurrence of the external cause; Z79.82 Long term (current) use of aspirin
CPT/HCPCS: 36415; 71045; 73700; 80048; 80053; 81001; 83605; 83690; 85014; 85018; 85025; 86850; 86900; 86901; 86920; 87040; 87077; 87086; 87181; 96365; 96375; 97110; 97161; 99284; 99285; A9270; J0131; P9016; 81003

== ENCOUNTER 2019-09-21 08:22 | Outpatient (CLI) | payer MEDICARE, BC ==
[2019-09-21 11:48] LABS: ALBUMIN 3.5 g/dL (3.2-5.5); ALBUMIN/GLOBULIN RATIO 1.1 (1.0-2.2); ALKALINE PHOSPHATASE 70 IU/L (42-121); ALT ALANINE AMINOTRANSFERASE < 10 IU/L (10-60); AST ASPARTATE AMINOTRANSFERASE 17 IU/L (10-42); BILIRUBIN,TOTAL 0.6 mg/dL (0.2-1.0); BUN - BLOOD UREA NITROGEN 11 mg/dL (6-20); CALCIUM 9.3 mg/dL (8.5-10.3); CARBON DIOXIDE - CO2 26 mmol/L (21-32); CHLORIDE 102 mmol/L (101-111); CHOL/HDL RATIO 3.6 (<4.4); CHOLESTEROL 179 mg/dL; GFR - MDRD 53 (>89); GLUCOSE 89 mg/dL (70-100); HDL CHOLESTEROL 50 mg/dL; LDL CHOLESTEROL,CALCULATED 112 mg/dL; LDL/HDL RATIO 2.2 (<4.4); SODIUM 138 mmol/L (135-145); TOTAL PROTEIN 6.6 g/dL (6.7-8.2); VLDL CHOLESTEROL 17 mg/dL
== END 2019-09-21 08:23 | disposition home or self-care (01) ==
LOC: LAB.S 08:22
PROVIDERS: ATTEND Internal Medicine
DX: E78.5 Hyperlipidemia, unspecified (principal)
CPT/HCPCS: 36415; 80053; 80061; 83721

== ENCOUNTER 2019-10-05 08:50 | Outpatient (CLI) | payer MEDICARE, BC ==
[2019-10-05 17:18] LABS: HGB - HEMOGLOBIN 9.7 g/dL (12.0-16.0); MEAN CORPUSCULAR HEMOGLOBIN 28.8 pg (27.0-31.0); MEAN CORPUSCULAR HGB CONC 29.4 g/dL (32.0-36.0); MEAN CORPUSCULAR VOLUME 97.9 fL (81.0-99.0); RED BLOOD COUNT 3.37 10^6/uL (4.20-5.40); RED CELL DISTRIBUTION WIDTH 15.9 % (12.0-15.0)
== END 2019-10-05 08:51 | disposition home or self-care (01) ==
LOC: LAB.S 08:50
PROVIDERS: ATTEND Internal Medicine
DX: D62 Acute posthemorrhagic anemia (principal)
CPT/HCPCS: 36415; 85027

== ENCOUNTER 2020-09-30 17:28 | Outpatient (CLI) | payer MEDICARE, BC | END 2020-09-30 17:29 | disposition home or self-care (01) | LOC: COV 17:28 | PROVIDERS: ATTEND Dermatology MOHS-Micrographic Surgery | DX: Z20.818 Contact with and (suspected) exposure to other bacterial communicable diseases (principal); Z20.828 Contact with and (suspected) exposure to other viral communicable diseases ==

== ENCOUNTER 2020-10-10 19:35 | Outpatient (CLI) | payer BC, MEDICARE, OTHER | END 2020-10-10 19:36 | disposition home or self-care (01) | LOC: COV 19:35 | PROVIDERS: ATTEND Dermatology MOHS-Micrographic Surgery | DX: Z01.812 Encounter for preprocedural laboratory examination (principal); Z20.828 Contact with and (suspected) exposure to other viral communicable diseases ==

== ENCOUNTER 2020-10-25 13:25 | Emergency (ER) | payer MEDICARE, BC ==
[2020-10-25] MEDS ORDERED: NITROGLYCERIN SL 0.4 MG TABLET SL STA (13:51)
--- NOTE | 2020-10-25 13:51 | ED Physician Documentation ---
History of Present Illness - Stated complaint Stated Complaint: CHEST PX - Chief complaint Chief Complaint: Cardiac - History obtained from History obtained from: Patient - Additonal information Additional information: 84 y.o. female w/ a hx of HTN, HLD and L hip replacement Presents to the emergency department with acute onset sharp left chest pain that she noticed this morning upon waking. She reports it is worse when she moves her arm and takes a deep breath. Pain is constant. She has some nausea but no vomiting. She appears very uncomfortable in the room. She denies any history of myocard ial infarction or congestive heart failure. She denies any falls or trauma. Non-smoker. Patient reports that in early October she had a benign skin lesion removed from her face at a dermatology office. She does have a history of upper GI bleed in September 2019 that was thought to be secondary to meloxicam and aspirin use. Patient denies abdominal pain black or bloody stools. No hematuria. Meds: Amlodipine, gabapentin. SOC: non smoker Review of Systems Ears: reports: Reviewed and negative Nose: reports: Reviewed and negative Throat: reports: Reviewed and negative Cardiac: reports: Chest pain / pressure, Pedal edema. denies: Palpitations, Calf pain Respiratory: denies: Dyspnea, Cough, Hemoptysis, Wheezing GI: reports: Nausea. 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 () : None HEENT: None Psych: None Musculoskeletal: Chronic back pain Derm: None - Past Surgical History General: Appendectomy, Colonoscopy Ortho: Hip replacement /FLIGHT KITCHEN MANAGER: Hysterectomy, Oophrectomy - Present Medications Home Medications: Ambulatory Orders Medication Instructions Recorded Confirmed Acetaminophen [Tylenol Extra 500 mg PO Q6H PRN 09/02/19 09/03/19 Strength] Calcium Carbonate/Vitamin D3 1 each PO DAILY 09/02/19 09/02/19 [Caltrate 600 Plus D3 Tablet] Multivitamin/Iron/Folic Acid 1 each PO DAILY 09/02/19 10/25/20 [Centrum Adults Tablet] Polyethylene Glycol 1450 8.5 gm PO DAILY 09/02/19 10/25/20 Red Yeast Rice 600 mg PO DAILY 09/02/19 10/25/20 Senna [Senokot] 8.6 mg PO DAILY PRN 09/02/19 10/25/20 Ferrous Gluconate 240 mg PO DAILY #30 tablet 09/04/19 Gabapentin [Neurontin] 0 mg PO DAILY 10/25/20 10/25/20 Rivaroxaban [Xarelto] 15 mg PO BID 21 Days #42 tablet 10/25/20 amLODIPine [Norvasc] 0 mg DAILY 10/25/20 10/25/20 - Allergies Allergies/Adverse Reactions: Allergies Allergy/AdvReac Type Severity Reaction Status Date / Time diphenhydramine AdvReac Nausea Verified 09/02/19 08:11 - Social History Does the pt smoke?: No Smoking Status: Never smoker Does the pt drink ETOH?: No Does the pt have substance abuse?: No - POLST Patient has POLST: Yes POLST Status: DNR PD ED PE EXPANDED - General General: Alert, In Pain - HEENT HEENT: PERRL, EOMI - Eyes Eyes: PERRL - Neck Neck: Supple w/out meningeal sx, No tenderness - Cardiac Cardiac: Regular Rate, Regular Rhythm, Radial strong equal, Pedal strong equal, Cap refill < 2 sec. No: Murmur Present - Respiratory Respiratory: Clear to ausultation [place]. No: Distress, Labored - Abdomen Abdomen: Normal Bowel sounds. No: Tender to palpation - Back Back: Other (Tenderness to palpation of the left lower anterior rib wall without ecchymosis.) - Extremities Extremities: Normal, Pedal edema bilateral. No: Deformity, Tenderness, Right calf TTP/cord, Left calf TTP/cord - Neuro Neuro: Alert and Oriented X 3, CNII-XII intact, Normal gait, Normal finger nose, Normal speech - GCS Eye Opening: Spontaneous Motor: Obeys Commands Verbal: Oriented Total: 15 Results - Vitals Vitals: Vital Signs - 24 hr 10/25/20 10/25/20 13:27 13:39 Temperature 36.6 C Heart Rate 87 Respiratory 20 Rate Blood Pressure 141/71 H Blood Pressure 141/71 H [Left] O2 Saturation 97 Oxygen O2 Source [Without Activity] Room air O2 Source ra - EKG (time done) 1334 Rate: Rate (enter#) (77) Rhythm: NSR [place]: Normal Intervals: RBBB QRS: LVH Ischemia: Non specific changes Compare to prior EKG: Old EKG unavailable Computer interpretation: Agree with computer - Labs Labs: Laboratory Tests 10/25/20 10/25/20 10/25/20 13:45 13:45 13:45 WBC 7.2 RBC 4.19 L Hgb 13.5 Hct 39.9 MCV 95.2 MCH 32.2 H MCHC 33.8 RDW 12.7 Plt Count 230 MPV 9.7 Neut # (Auto) 4.0 Lymph # (Auto) 2.0 [place] # (Auto) 0.8 Eos # (Auto) 0.4 Baso # (Auto) 0.1 Absolute Nucleated RBC 0.00 Nucleated RBC % 0.0 Sodium 139 Potassium 3.6 Chloride 103 Carbon Dioxide 27 Anion Gap 9.0 BUN 19 Creatinine 1.0 Estimated GFR (MDRD) 53 L Glucose 94 Calcium 9.8 Total Bilirubin 0.5 AST 24 ALT 17 Alkaline Phosphatase 50 Troponin I High Sens 4.9 B-Natriuretic Peptide Total Protein 7.2 Albumin 4.1 Globulin 3.1 Albumin/Globulin Ratio 1.3 Lipase 63 H 10/25/20 13:45 WBC RBC Hgb Hct MCV MCH MCHC RDW Plt Count MPV Neut # (Auto) Lymph # (Auto) [place] # (Auto) Eos # (Auto) Baso # (Auto) Absolute Nucleated RBC Nucleated RBC % Sodium Potassium Chloride Carbon Dioxide Anion Gap BUN Creatinine Estimated GFR (MDRD) Glucose Calcium Total Bilirubin AST ALT Alkaline Phosphatase Troponin I High Sens B-Natriuretic Peptide 32 Total Protein Albumin Globulin Albumin/Globulin Ratio Lipase - Rads (name of study) CXR Radiology: Final report received (Limited portable chest examination without any acute abnormality identified.) CT angio chest Radiology: Final report received (Small burden of pulmonary embolism seen involving the lower lobes in the right middle lobe. Pulmonary arteries are mildly enlarged which is typically an idiopathic finding) PD MEDICAL DECISION MAKING - ED course Complexity details: reviewed results, re-evaluated patient, considered differential, d/w patient ED course: 84-year-old female presents to the emergency department for evaluation of acute sharp pleuritic chest pain worse with arm movement and palpation that she noted upon waking this morning. Some nausea no vomiting. High-sensitivity troponin and BNP are negative. Her EKG shows a right bundle branch block. No previous for comparison however it is a nonischemic finding. Chest x-ray does not show any acute focal abnormality. But given the pleuritic component and acute onset of this pain we will proceed with a CT pulmonary angio to rule out a pulmonary embolus. 1535: CT pulmonary angio of the chest does show that there are bilateral small segmental pulmonary emboli. At the time of reevaluation in the emergency department she is now free of chest pain. She does have a history of previous upper GI bleed in September 2019. At this time it was associated with aspirin and meloxicam use. I have discussed the finding of the pulmonary embolus with the patient as well as her history of GI bleed. However risk-benefit ratio of not anticoagulating overweighs the risk of a GI bleed. We will start her on Xarelto. first dose givenher ein the ED I have advised her to follow-up very closely with her primary care doctor. She may consider having more frequent hemogram checks as well as monitoring of her stool. She does understand that she does carry a higher risk of recurrent GI bleeding in this setting. Her PESI score is 85 for age only.. No signs of Right heart strain in CT scan Emergent return precautions were discussed for any falls or trauma, black or bloody stools, suddenly severe or different chest pain, or labored breathing. Departure - Departure Disposition: 01 Home, Self Care Clinical Impression: Pulmonary embolism Qualifiers: Pulmonary embolism type: other Chronicity: acute Acute cor pulmonale presence: unspecified Qualified Code(s): I26.99 - Other pulmonary embolism without acute cor pulmonale Condition: Stable Record reviewed to determine appropriate education?: Yes Instructions: Embolism Pulmonary Follow-Up: CAMPBELL SAAB MD [Primary Care Provider] - Within 3 Days Prescriptions: Rivaroxaban [Xarelto] 15 mg PO BID 21 Days #42 tablet Comments: You were seen today for chest pain. Unfortunately the CT scan does show that you have a bilateral small pulmonary embolus. It is important that you begin taking anticoagulation. We have ordered a medication called Xarelto. This will help prevent new clot from forming. Over time the clot that is in your lung will slowly be reabsorbed by your body. Because you do have a history of previous gastrointestinal bleed, you are at higher risk to have a repeat GI bleed. I do recommend that you see your primary care doctor in follow-up within the next week. You should have frequent checks of your hemoglobin. If at any point you have fevers, difficulty breathing, black or bloody stools or return or worsening of the chest pain please return immediately to the ER. Your primary doctor may also consider doing outpatient testing such as an echocardiogram or ultrasound of your legs. The Xarelto or anticoagulant medicine that was ordered for you is for the next 3 weeks. In 3 weeks your dose should change. It is very critical see your doctor before this occurs.
[2020-10-25 13:55] LABS: BASOPHILS # (AUTO) 0.1 10^3/uL (0.0-0.1); EOSINOPHILS # (AUTO) 0.4 10^3/uL (0.0-0.7); EOSINOPHILS % (AUTO) 5.3 %; HGB - HEMOGLOBIN 13.5 g/dL (12.0-16.0); MEAN CORPUSCULAR HEMOGLOBIN 32.2 pg (27.0-31.0); MEAN CORPUSCULAR HGB CONC 33.8 g/dL (32.0-36.0); MEAN CORPUSCULAR VOLUME 95.2 fL (81.0-99.0); MEAN PLATELET VOLUME 9.7 fL (7.9-10.8); MONOCYTES # (AUTO) 0.8 10^3/uL (0.0-1.0); MONOCYTES % (AUTO) 10.7 %; NEUTROPHILS % (AUTO) 55.9 %; PLT - PLATELET COUNT 230 10^3/uL (130-450); RED BLOOD COUNT 4.19 10^6/uL (4.20-5.40); RED CELL DISTRIBUTION WIDTH 12.7 % (12.0-15.0); WHITE BLOOD COUNT 7.2 x10^3/uL (4.8-10.8)
[2020-10-25] MEDS ORDERED: ASPIRIN 325 MG TABLET PO STA (14:00)
[2020-10-25 14:06] LABS: ALBUMIN 4.1 g/dL (3.2-5.5); ALBUMIN/GLOBULIN RATIO 1.3 (1.0-2.2); BILIRUBIN,TOTAL 0.5 mg/dL (0.2-1.0); CALCIUM 9.8 mg/dL (8.5-10.3); TOTAL PROTEIN 7.2 g/dL (6.7-8.2)
--- NOTE | 2020-10-25 14:21 | XRAY Report ---
PROCEDURE: Chest 1 View X-Ray INDICATIONS: Chest Pain TECHNIQUE: One view of the chest was acquired. COMPARISON: None FINDINGS: Surgical changes and devices: None. Lungs and pleura: An incomplete inspiratory result is noted, with low lung volumes and crowding of t he vascular markings. No focal infiltrates are seen. No large pneumothorax or large pleural effusion can be seen. Mediastinum: The aorta is prominent and tortuous. The cardiac contours are within normal limits. Bones and chest wall: No suspicious bony lesions. Age-appropriate degenerative changes are seen. O verlying soft tissues appear unremarkable. IMPRESSION: Limited portable chest examination, without an acute abnormality identified. Please consider a short-term follow-up 2 view chest series (performed in deep inspiration) for furthe r evaluation. Reviewed by: Howie Lagunas MD on 10/25/2020 1:20 PM [facility] Approved by: Howie Lagunas MD on 10/25/2020 1:20 PM [facility] Station ID: [id number]
[2020-10-25] MEDS ORDERED: HYDROmorphone 1 MG/ML CARPUJECT IVP STA (14:30)
[2020-10-25] MEDS ORDERED: IOVERSOL 320 100 ML VIAL IVP ONE ×2 (14:44→15:01)
--- NOTE | 2020-10-25 15:10 | CT Report ---
PROCEDURE: ANGIO CHEST W/WO INDICATIONS: acute chest pain; pleuritic; clinical concern for PE CONTRAST: IV CONTRAST: Optiray 320 ml: 80 PO CONTRAST: *NO PO CONTRAST TECHNIQUE: After the administration of intravenous contrast, 2 mm thick sections acquired from the pulmonary api bernadine to the posterior costophrenic angles. 3-dimensional maximum intensity projection (MIP) coronal a nd sagittal reformats were then acquired through the thorax. For radiation dose reduction, the follow ing was used: automated exposure control, adjustment of mA and/or kV according to patient size. COMPARISON: Correlation is made with the accompanying chest radiograph, 10/25/2020. FINDINGS: Image quality: Excellent. Pulmonary arteries: There is a small amount of segmental right lower lobe and left lower lobe pulmona ry embolism. There is also a small burden of pulmonary embolism seen involving the right middle lobe. No definite right upper lobe or left upper lobe pulmonary emboli can be seen. No proximal or central pulmonary emboli can be seen. The pulmonary arteries overall appear enlarged. Lungs and pleura: Lungs are clear. No pleural effusions or pneumothorax. Central and peripheral ai rways are patent. Mediastinum: Heart size is normal, without pericardial effusion. No mediastinal or hilar adenopathy . Thoracic aorta is normal in caliber and enhancement. Esophagus is normal in caliber. There is a m oderate hernia. Bones and chest wall: No suspicious bony lesions. Ribs and thoracic spine appear intact throughout. Moderate degenerative changes are seen. Eccentric significant radiographic abnormality can be seen. The thyroid is normal. No axillary or supraclavicular adenopathy. Abdomen: A rim calcified gallstone is seen, as on series 5 image 108. Water density liver cysts can b e seen. The visualized portions of the upper abdominal structures are otherwise within normal limits. IMPRESSION: There is a small burden of pulmonary embolism seen involving the lower lobes and the right middle lob e. The pulmonary arteries are mildly enlarged, which is typically an idiopathic. However, please correla te with potential pulmonary artery hypertension. Incidental note is made of: Accentuated thoracic kyphosis Bony degenerative changes Moderate hiatal hernia Rim calcified gallstone Water density liver cysts Reviewed by: Howie Lagunas MD on 10/25/2020 2:09 PM [place] Approved by: Howie Lagunas MD on 10/25/2020 2:09 PM [facility] Station ID: [id number]
[2020-10-25] MEDS ORDERED: RIVAROXABAN 15 MG TABLET PO STA (15:30)
[2020-10-25 15:53] VITALS: BP 128/68
== END 2020-10-25 16:04 | disposition home or self-care (01) ==
LOC: ED 13:25
DX: I26.94 Multiple subsegmental thrombotic pulmonary emboli without acute cor pulmonale (principal); I45.10 Unspecified right bundle-branch block; Z87.19 Personal history of other diseases of the digestive system; K44.9 Diaphragmatic hernia without obstruction or gangrene; I10 Essential (primary) hypertension; E78.5 Hyperlipidemia, unspecified; Z96.642 Presence of left artificial hip joint; Z66 Do not resuscitate
CPT/HCPCS: 36415; 71045; 71275; 80053; 83690; 83880; 84484; 85025; 93005; 99284; A9270; J1170; Q9967

== ENCOUNTER 2021-06-30 09:40 | Emergency (ER) | payer MEDICARE, BC ==
[2021-06-30 09:54] VITALS: BP 179/75
[2021-06-30] MEDS ORDERED: LIDOCAINE TOPICAL 4% 50 ML BOTTLE TOP ONE (10:07)
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
== END 2021-06-30 11:13 | disposition home or self-care (01) ==
LOC: ED 09:40
DX: S51.811A Laceration without foreign body of right forearm, initial encounter (principal); W01.0XXA Fall on same level from slipping, tripping and stumbling without subsequent striking against object, initial encounter; Y93.01 Activity, walking, marching and hiking; Y92.481 Parking lot as the place of occurrence of the external cause; I10 Essential (primary) hypertension; Z79.01 Long term (current) use of anticoagulants; Z86.711 Personal history of pulmonary embolism
CPT/HCPCS: 12004; 99282

== ENCOUNTER 2021-09-24 07:51 | Outpatient (CLI) | payer MEDICARE, BC | END 2021-09-24 07:52 | disposition home or self-care (01) | LOC: DI 07:51 | PROVIDERS: ATTEND Internal Medicine Cardiovascular Disease | DX: I11.9 Hypertensive heart disease without heart failure (principal); R07.9 Chest pain, unspecified | CPT/HCPCS: 93306 ==

== ENCOUNTER 2021-10-08 07:33 | Outpatient (CLI) | payer MEDICARE, BC | END 2021-10-08 07:34 | disposition critical access hospital (66) | LOC: EMS 07:33 | DX: Z04.3 Encounter for examination and observation following other accident (principal); M79.642 Pain in left hand; M54.9 Dorsalgia, unspecified; G89.29 Other chronic pain | CPT/HCPCS: A0425; A0429 ==

== ENCOUNTER 2021-10-08 08:01 | Emergency (ER) | payer OTHER, MEDICARE, BC ==
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
[2021-10-08] MEDS ORDERED: SODIUM CHLORIDE 0.9% 1,000 ML IV STA (08:19)
[2021-10-08 08:29] LABS: BASOPHILS # (AUTO) 0.1 10^3/uL (0.0-0.1); BASOPHILS % (AUTO) 1.2 %; EOSINOPHILS # (AUTO) 0.2 10^3/uL (0.0-0.7); EOSINOPHILS % (AUTO) 3.1 %; HCT - HEMATOCRIT 40.3 % (37.0-47.0); HGB - HEMOGLOBIN 13.5 g/dL (12.0-16.0); LYMPHOCYTES # (AUTO) 1.4 10^3/uL (1.5-3.5); LYMPHOCYTES % (AUTO) 21.9 %; MEAN CORPUSCULAR HEMOGLOBIN 31.8 pg (27.0-31.0); MEAN CORPUSCULAR HGB CONC 33.5 g/dL (32.0-36.0); MEAN CORPUSCULAR VOLUME 94.8 fL (81.0-99.0); MEAN PLATELET VOLUME 9.4 fL (7.9-10.8); MONOCYTES # (AUTO) 0.7 10^3/uL (0.0-1.0); MONOCYTES % (AUTO) 10.1 %; NEUTROPHILS # (AUTO) 4.1 10^3/uL (1.5-6.6); NEUTROPHILS % (AUTO) 63.5 %; PLT - PLATELET COUNT 257 10^3/uL (130-450); RED BLOOD COUNT 4.25 10^6/uL (4.20-5.40); RED CELL DISTRIBUTION WIDTH 13.2 % (12.0-15.0); WHITE BLOOD COUNT 6.5 x10^3/uL (4.8-10.8)
[2021-10-08 08:36] LABS: INR 2.2 (0.8-1.2); PT - PROTHROMBIN TIME 24.1 secs (9.9-12.6)
[2021-10-08 08:41] LABS: ALBUMIN 4.3 g/dL (3.2-5.5); ALBUMIN/GLOBULIN RATIO 1.3 (1.0-2.2); BILIRUBIN,TOTAL 0.6 mg/dL (0.2-1.0); CALCIUM 10.3 mg/dL (8.5-10.3); CREATININE 1.1 mg/dL (0.4-1.0); POTASSIUM 3.9 mmol/L (3.5-5.0); TOTAL PROTEIN 7.6 g/dL (6.7-8.2)
[2021-10-08 08:58] LABS: PARTIAL THROMBOPLASTIN TIME 49.4 secs (24.9-33.3)
[2021-10-08] MEDS ORDERED: IOPAMIDOL-300 100 ML VIAL ONE (09:09)
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
[2021-10-08] MEDS ORDERED: IOPAMIDOL-300 100 ML VIAL IVP ONE (10:23)
[2021-10-08 10:29] VITALS: BP 153/69
== END 2021-10-08 10:29 | disposition home or self-care (01) ==
LOC: EDUNIT# → ED 08:01
DX: M54.50 Low back pain, unspecified (principal); V43.53XA Car driver injured in collision with pick-up truck in traffic accident, initial encounter; I10 Essential (primary) hypertension
CPT/HCPCS: 36415; 70450; 71260; 72125; 74177; 80053; 83690; 85025; 85610; 85730; 99283; 99284; Q9967

== ENCOUNTER 2022-10-08 08:57 | Outpatient (CLI) | payer MEDICARE, BC | END 2022-10-08 08:58 | disposition home or self-care (01) | LOC: DI 08:57 | PROVIDERS: ATTEND Internal Medicine Cardiovascular Disease | DX: I25.10 Atherosclerotic heart disease of native coronary artery without angina pectoris (principal); I77.810 Thoracic aortic ectasia; I35.1 Nonrheumatic aortic (valve) insufficiency; I11.9 Hypertensive heart disease without heart failure; I49.3 Ventricular premature depolarization; Z86.711 Personal history of pulmonary embolism | CPT/HCPCS: 93306 ==